=== PATIENT | male | born 1990 | race Caucasian/White ===

== ENCOUNTER 2019-03-04 14:49 | Emergency (ER) | payer OTHER ==
[~2019-03-04] VITALS: Ht 190.5 cm; Wt 90.7 kg
[2019-03-04 14:55] VITALS: BP 130/80
[2019-03-06 10:11] LABS: HIV-1/HIV-2 ANTIBODY Non Reactive (Non Reactive)
== END 2019-03-04 15:21 | disposition home or self-care (01) ==
LOC: M.ERS 14:49
PROVIDERS: Nurse Practitioner Family
DX: Z77.21 Contact with and (suspected) exposure to potentially hazardous body fluids (principal); Z88.0 Allergy status to penicillin